=== PATIENT | female | born 2005 | race African-American/Black ===

== ENCOUNTER 2025-01-01 17:22 | Emergency (ER) | payer MEDICAID ==
[~2025-01-01] VITALS: Ht 154.9 cm; Wt 59.0 kg
[2025-01-01 17:30] VITALS: TEMP 36.6; O2SAT 97
[2025-01-01] MEDS ORDERED: IBUP-2029 MT (18:07)
[2025-01-01 18:23] VITALS: BP 125/69; PULSE 85; RESP 16; O2SAT 100
== END 2025-01-01 18:24 | disposition home or self-care (01) ==
LOC: ER 17:22
DX: S83.92XA Sprain of unspecified site of left knee, initial encounter (principal); Z90.89 Acquired absence of other organs; Z79.899 Other long term (current) drug therapy; X58.XXXA Exposure to other specified factors, initial encounter; Y93.89 Activity, other specified; Y92.89 Other specified places as the place of occurrence of the external cause; Y99.8 Other external cause status
CPT/HCPCS: 99282